=== PATIENT | female | born 1970 | race Hispanic/Latino ===

== ENCOUNTER → 2019-06-28 | Outpatient (CLI) | payer MEDICAID | END | disposition home or self-care (01) | LOC: RAH 09:54 | PROVIDERS: ATTEND Internal Medicine Gastroenterology | DX: R10.11 Right upper quadrant pain (principal); R10.13 Epigastric pain | CPT/HCPCS: 78227; A9537 ==

== ENCOUNTER 2020-09-06 12:46 | Emergency (ER) | payer MEDICAID ==
[2020-09-06 14:04] LABS: BASOPHILS % (AUTO) 0.4 % (0.0-5.0); EOSINOPHILS % (AUTO) 0.6 % (0.0-8.0); HEMATOCRIT 40.7 % (36-48); LYMPHOCYTES % (AUTO) 21.5 % (21.0-51.0); MEAN CORPUSCULAR HEMOGLOBIN 28.9 pg (27.0-33.0); MEAN CORPUSCULAR HGB CONC 32.7 g/dL (32.0-36.0); MEAN CORPUSCULAR VOLUME 88.3 fL (79-99); MONOCYTES % (AUTO) 9.5 % (3.0-13.0); NEUTROPHILS % (AUTO) 67.8 % (40.0-77.0); PLATELET COUNT (AUTO) 261 K/uL (130-400); RED BLOOD CELL COUNT(AUTO) 4.61 MIL/uL (4.00-5.50); RED CELL DISTRIBUTION WIDTH 12.3 % (11.0-15.5); WHITE BLOOD COUNT (AUTO) 9.1 K/uL (4.8-10.8)
[2020-09-06 14:15] LABS: CREATININE 0.7 mg/dL (0.5-1.5); POTASSIUM 3.7 mmol/L (3.5-5.1)
[2020-09-06 14:19] LABS: ALBUMIN 3.4 g/dL (3.5-5.0); TOTAL PROTEIN, SERUM 7.6 g/dL (6.0-8.3)
[2020-09-06] MEDS ORDERED: SODIUM CHLORIDE 0.9% 1000ML 2,000 ML IV ONE (14:40)
[2020-09-06] MEDS ORDERED: DICYCLOMINE HCL 10 MG/ML 2ML AMP IM ONE (15:07)
[2020-09-06 15:51] LABS: APPEARANCE,URINE CLOUDY (CLEAR); BILIRUBIN,URINE NEGATIVE (NEGATIVE); COLOR,URINE YELLOW (YELLOW); GLUCOSE, URINE (UA) NEGATIVE (NEGATIVE); KETONES,URINE 15 mg/dL (NEGATIVE); LEUKOCYTE ESTERASE ,URINE NEGATIVE (NEGATIVE); NITRATE,URINE NEGATIVE (NEGATIVE); OCCULT BLOOD,URINE MODERATE (NEGATIVE); PROTEIN,URINE TRACE mg/dL (NEGATIVE); UROBILINOGEN,URINE 0.2 mg/dL (0.2-1.0)
[2020-09-06 16:04] LABS: BACTERIA,URINE Few /HPF (None Seen); RBC,URINE 0-1 /HPF (0-1); SQUAMOUS EPITHELIAL CELL,UR Moderate /HPF (0-2); WBC,URINE 0-1 /HPF (0-1)
== END 2020-09-06 17:00 | disposition home or self-care (01) ==
LOC: EDH 12:46
DX: B33.8 Other specified viral diseases (principal); R19.7 Diarrhea, unspecified; Z20.822 Contact with and (suspected) exposure to COVID-19; J45.909 Unspecified asthma, uncomplicated; Z88.0 Allergy status to penicillin; Z90.710 Acquired absence of both cervix and uterus; Z98.890 Other specified postprocedural states
CPT/HCPCS: 36415; 71045; 80053; 81001; 82150; 83690; 85025; 87426; 87804 ×2; 87880; 96360; 96361; 96372; 99284; J0500; J7030; U0003

== ENCOUNTER 2020-12-03 14:35 | Emergency (ER) | payer MEDICAID ==
[2020-12-03 14:51] LABS: BASOPHILS % (AUTO) 0.7 % (0.0-5.0); EOSINOPHILS % (AUTO) 4.3 % (0.0-8.0); HEMATOCRIT 41.3 % (36-48); LYMPHOCYTES % (AUTO) 23.3 % (21.0-51.0); MEAN CORPUSCULAR HEMOGLOBIN 28.8 pg (27.0-33.0); MEAN CORPUSCULAR HGB CONC 33.2 g/dL (32.0-36.0); MEAN CORPUSCULAR VOLUME 86.9 fL (79-99); MONOCYTES % (AUTO) 10.6 % (3.0-13.0); NEUTROPHILS % (AUTO) 60.5 % (40.0-77.0); PLATELET COUNT (AUTO) 216 K/uL (130-400); RED BLOOD CELL COUNT(AUTO) 4.75 MIL/uL (4.00-5.50); RED CELL DISTRIBUTION WIDTH 12.9 % (11.0-15.5); WHITE BLOOD COUNT (AUTO) 7.2 K/uL (4.8-10.8)
[2020-12-03 15:02] LABS: CREATININE 0.8 mg/dL (0.5-1.5); POTASSIUM 3.9 mmol/L (3.5-5.1)
[2020-12-03 15:05] LABS: APPEARANCE,URINE Turbid (CLEAR); BILIRUBIN,URINE Negative (NEGATIVE); COLOR,URINE Yellow (YELLOW); GLUCOSE, URINE (UA) TRACE mg/dL (NEGATIVE); KETONES,URINE Trace mg/dL (NEGATIVE); LEUKOCYTE ESTERASE ,URINE Moderate (NEGATIVE); NITRATE,URINE Negative (NEGATIVE); OCCULT BLOOD,URINE Moderate (NEGATIVE); PH,URINE 5.5 (5.0-8.0); PROTEIN,URINE POS 2+ mg/dL (NEGATIVE)
[2020-12-03 15:06] LABS: ALBUMIN 3.5 g/dL (3.5-5.0); BILIRUBIN,TOTAL 0.8 mg/dL (0.2-1.0); TOTAL PROTEIN, SERUM 7.8 g/dL (6.0-8.3)
[2020-12-03 15:20] LABS: BACTERIA,URINE Few /HPF (None Seen); MUCUS,URINE Moderate LPF (None Seen); SQUAMOUS EPITHELIAL CELL,UR Few /HPF (0-2); YEAST,URINE BUDDING Few /HPF (None Seen)
[2020-12-03] MEDS ORDERED: ONDANSETRON HCL 4 MG/2 ML VIAL ONE (15:23)
[2020-12-03] MEDS ORDERED: FAMOTIDINE/PF 20 MG/2 ML VIAL IV ONE (15:24)
[2020-12-03] MEDS ORDERED: NITROFURANTOIN MONOHYD/M-CRYST 100 MG CAPSULE PO ONE (15:24)
[2020-12-03] MEDS ORDERED: IOHEXOL-350 75 ML VIAL IV ONE (15:31)
== END 2020-12-03 16:49 | disposition home or self-care (01) ==
LOC: EDH 14:35
DX: N39.0 Urinary tract infection, site not specified (principal); K76.0 Fatty (change of) liver, not elsewhere classified; R10.84 Generalized abdominal pain; J45.909 Unspecified asthma, uncomplicated; Z88.0 Allergy status to penicillin; Z88.8 Allergy status to other drugs, medicaments and biological substances; Z90.49 Acquired absence of other specified parts of digestive tract
CPT/HCPCS: 36415; 74177; 80053; 81001; 81025; 82150; 83690; 85025; 87088; 96374; 96375; 99285; J2405; J3490; Q9967

== ENCOUNTER 2021-07-04 19:40 | Emergency (ER) | payer MEDICAID ==
[~2021-07-04] VITALS: Ht 160 cm; Wt 93.0 kg
[2021-07-04 21:53] LABS: BASOPHILS % (AUTO) 0.7 % (0.0-5.0); HEMATOCRIT 38.4 % (36-48); LYMPHOCYTES % (AUTO) 33.2 % (21.0-51.0); MEAN CORPUSCULAR HEMOGLOBIN 28.9 pg (27.0-33.0); MEAN CORPUSCULAR HGB CONC 33.1 g/dL (32.0-36.0); MEAN CORPUSCULAR VOLUME 87.3 fL (79-99); MONOCYTES % (AUTO) 7.7 % (3.0-13.0); NEUTROPHILS % (AUTO) 54.3 % (40.0-77.0); PLATELET COUNT (AUTO) 272 K/uL (130-400); RED CELL DISTRIBUTION WIDTH 12.7 % (11.0-15.5)
[2021-07-04 22:05] LABS: CREATININE 0.7 mg/dL (0.5-1.5); POTASSIUM 3.6 mmol/L (3.5-5.1)
[2021-07-04 22:10] LABS: ALBUMIN 3.4 g/dL (3.5-5.0); BILIRUBIN,TOTAL 0.7 mg/dL (0.2-1.0); TOTAL PROTEIN, SERUM 7.3 g/dL (6.0-8.3)
[2021-07-04 22:20] LABS: BILIRUBIN,URINE Negative (NEGATIVE); COLOR,URINE Yellow (YELLOW); GLUCOSE, URINE (UA) Negative (NEGATIVE); KETONES,URINE Negative (NEGATIVE); LEUKOCYTE ESTERASE ,URINE Negative (NEGATIVE); NITRATE,URINE Negative (NEGATIVE); OCCULT BLOOD,URINE Trace (NEGATIVE); PH,URINE 5.5 (5.0-8.0); PROTEIN,URINE POS 1+ mg/dL (NEGATIVE)
[2021-07-04 22:22] LABS: APPEARANCE,URINE HAZY (CLEAR)
[2021-07-04] MEDS ORDERED: LIDOCAINE 5% TOPICAL PATCH TP ONE (22:30)
[2021-07-04] MEDS ORDERED: ORPHENADRINE CITRATE 30 MG/ML ML IM ONE (22:30)
[2021-07-04] MEDS ORDERED: KETOROLAC 60 MG VIAL (30MG/ML) IM ONE (22:30)
[2021-07-04 22:35] LABS: BACTERIA,URINE Moderate /HPF (None Seen)
[2021-07-05] MEDS ORDERED: NAPR-1180 PO (00:38)
[2021-07-05] MEDS ORDERED: DEXA4TAB PO (00:38)
[2021-07-05 00:56] VITALS: BP 134/79
== END 2021-07-05 00:58 | disposition home or self-care (01) ==
LOC: EDH 19:40
DX: M54.50 Low back pain, unspecified (principal); K76.0 Fatty (change of) liver, not elsewhere classified; E27.8 Other specified disorders of adrenal gland; J45.909 Unspecified asthma, uncomplicated; I10 Essential (primary) hypertension; Z88.0 Allergy status to penicillin
CPT/HCPCS: 36415; 74176; 80053; 81001; 82550; 83690; 85025; 87088; 96372 ×2; 99284; J1885; J2360

== ENCOUNTER 2023-05-05 20:57 | Emergency (ER) | payer MEDICAID ==
[~2023-05-05] VITALS: Ht 160 cm; Wt 96.6 kg
[~2023-05-05 20:57] MED LIST: DEXA4TAB PO; NAPR-1180 PO
[2023-05-05 21:14] VITALS: BP 137/81
[2023-05-05] MEDS ORDERED: IPRATROPIUM/ALBUTEROL SULFATE 3 ML SOLUTION IH ONE (21:30)
[2023-05-05] MEDS ORDERED: PREDNISONE 20 MG TABLET PO ONE (21:30)
[2023-05-05 21:31] VITALS: PULSE 80; RESP 16
[2023-05-05] MEDS ORDERED: IPRA4AER IH (21:35)
[2023-05-05] MEDS ORDERED: METH4TAB3 PO (21:35)
[2023-05-05] MEDS ORDERED: FEXO180T94 PO (21:35)
[2023-05-05] MEDS ORDERED: HONE5.5S PO (22:51)
[2023-05-05] MEDS ORDERED: BENZ-39 PO (22:51)
[2023-05-05] MEDS ORDERED: GUAI600T50 PO (22:51)
== END 2023-05-05 23:03 | disposition home or self-care (01) ==
LOC: EDH 20:57
DX: J45.901 Unspecified asthma with (acute) exacerbation (principal); Z90.49 Acquired absence of other specified parts of digestive tract; Z90.710 Acquired absence of both cervix and uterus; Z79.899 Other long term (current) drug therapy; Z88.0 Allergy status to penicillin; Z88.8 Allergy status to other drugs, medicaments and biological substances
CPT/HCPCS: 94640

== ENCOUNTER 2023-07-04 23:20 | Emergency (ER) | payer MEDICAID, OTHER ==
[~2023-07-04] VITALS: Ht 160 cm; Wt 95.7 kg
[~2023-07-04 23:20] MED LIST changes: +BENZ-39 PO; +FEXO180T94 PO; +GUAI600T50 PO; +HONE5.5S PO; +IPRA4AER IH; +METH4TAB3 PO
[2023-07-04 23:22] VITALS: BP_DIAS 80
[2023-07-04] MEDS ORDERED: CLIN-141 PO (23:58)
[2023-07-04] MEDS ORDERED: IBUP-2077 PO (23:58)
[2023-07-05] MEDS ORDERED: CLINDAMYCIN 150 MG CAP PO ONE
[2023-07-05] MEDS ORDERED: IBUPROFEN 800 MG TAB PO ONE
[2023-07-05 00:50] VITALS: BP_SYST 82; PULSE 78; RESP 18; O2SAT 98
== END 2023-07-05 00:57 | disposition home or self-care (01) ==
LOC: EDH 23:20
DX: S02.5XXA Fracture of tooth (traumatic), initial encounter for closed fracture (principal); E11.9 Type 2 diabetes mellitus without complications; J45.909 Unspecified asthma, uncomplicated; Z79.899 Other long term (current) drug therapy; Z90.49 Acquired absence of other specified parts of digestive tract; Z90.710 Acquired absence of both cervix and uterus; Z98.890 Other specified postprocedural states; Z88.0 Allergy status to penicillin; Z88.8 Allergy status to other drugs, medicaments and biological substances; X58.XXXA Exposure to other specified factors, initial encounter; Y93.89 Activity, other specified; Y92.89 Other specified places as the place of occurrence of the external cause; Y99.8 Other external cause status

== ENCOUNTER 2023-11-07 00:20 | Emergency (ER) | payer BC, OTHER ==
[~2023-11-07] VITALS: Ht 154.9 cm; Wt 94.8 kg
[~2023-11-07 00:20] MED LIST changes: +CLIN-141 PO; +IBUP-2077 PO
[2023-11-07] MEDS: ONDANSETRON 4MG INJ IVP ONE (02:45)
[2023-11-07] MEDS: MORPHINE 4 MG SYG IVP ONE (02:46)
[2023-11-07] MEDS: DiphenhydrAMINE HCL 50 MG/ML VIAL IV ONE (02:54)
[2023-11-07] MEDS: DiphenhydrAMINE HCL 50 MG/ML VIAL ONE (02:56)
[2023-11-07 02:57] LABS: BASOPHILS # (AUTO) 0.07 K/uL (0.00-0.20); BASOPHILS % (AUTO) 0.5 % (0.0-5.0); EOSINOPHILS # (AUTO) 0.16 K/uL (0.00-0.70); EOSINOPHILS % (AUTO) 1.2 % (0.0-8.0); HEMATOCRIT 39.8 % (36-48); IMMATURE GRANULOCYTE ABSOLUTE 0.04 K/uL (0-1); LYMPHOCYTES # (AUTO) 3.7 K/uL (1.0-4.8); LYMPHOCYTES % (AUTO) 28.5 % (21.0-51.0); MEAN CORPUSCULAR HGB CONC 33.4 g/dL (32.0-36.0); MEAN CORPUSCULAR VOLUME 86.9 fL (79-99); MONOCYTES # (AUTO) 0.8 K/uL (0.1-1.0); NEUTROPHILS # (AUTO) 8.3 K/uL (1.8-7.7); NEUTROPHILS % (AUTO) 63.5 % (40.0-77.0); PLATELET COUNT (AUTO) 313 K/uL (130-400); RED BLOOD CELL COUNT(AUTO) 4.58 MIL/uL (4.00-5.50); RED CELL DISTRIBUTION WIDTH 12.9 % (11.0-15.5); WHITE BLOOD COUNT (AUTO) 13.1 K/uL (4.8-10.8)
[2023-11-07 03:05] LABS: CREATININE 0.6 mg/dL (0.5-1.0); POTASSIUM 3.9 mmol/L (3.5-5.1)
[2023-11-07 03:10] LABS: ALBUMIN 3.4 g/dL (3.5-5.0); BILIRUBIN,TOTAL 0.9 mg/dL (0.2-1.0)
[2023-11-07] MEDS: CEFTRIAXONE 1G VIAL IVPB ONE (03:55)
[2023-11-07 04:24] LABS: ERYTHROCYTE SEDIMENTATION RATE 44 MM/HR (0-30)
[2023-11-07] MEDS: KETOROLAC 30MG VIAL (30MG/ML) IVP ONE (04:46)
[2023-11-07] MEDS ORDERED: CEPH500B PO (05:27)
[2023-11-07] MEDS ORDERED: IBUP-2070 PO (05:27)
[2023-11-07 05:34] VITALS: BP 141/67; PULSE 78; RESP 18; O2SAT 99
== END 2023-11-07 05:40 | disposition home or self-care (01) ==
LOC: EDH 00:20
DX: M25.531 Pain in right wrist (principal); M79.89 Other specified soft tissue disorders; J45.909 Unspecified asthma, uncomplicated; M19.90 Unspecified osteoarthritis, unspecified site; Z79.52 Long term (current) use of systemic steroids; Z88.0 Allergy status to penicillin; Z90.49 Acquired absence of other specified parts of digestive tract; Z90.710 Acquired absence of both cervix and uterus
CPT/HCPCS: 99284; 96365; 96375; 80053; 85025; 85651; 86140; 36415; 73130; 73110; J1200; J0696; J2405; J2270; J1885

== ENCOUNTER 2023-11-09 07:23 | Emergency (ER) | payer BC ==
[~2023-11-09] VITALS: Ht 154.9 cm; Wt 96.6 kg
[~2023-11-09 07:23] MED LIST changes: +CEPH500B PO; +IBUP-2070 PO
[2023-11-09] MEDS: SOLU-MEDROL 125MG VIAL IM ONE (09:28)
[2023-11-09] MEDS: KETOROLAC 60 MG VIAL (30MG/ML) IM ONE (09:29)
[2023-11-09] MEDS ORDERED: METH4TAB3 PO (11:45)
[2023-11-09] MEDS ORDERED: MELO-106 PO (11:45)
[2023-11-09] MEDS ORDERED: PREG25 PO (11:45)
[2023-11-09 11:53] VITALS: BP 141/72; PULSE 76; RESP 16; O2SAT 100
== END 2023-11-09 11:58 | disposition home or self-care (01) ==
LOC: EDH 07:23
DX: G56.03 Carpal tunnel syndrome, bilateral upper limbs (principal); M19.90 Unspecified osteoarthritis, unspecified site; J45.909 Unspecified asthma, uncomplicated; Z79.52 Long term (current) use of systemic steroids; Z88.0 Allergy status to penicillin; Z88.5 Allergy status to narcotic agent; Z90.49 Acquired absence of other specified parts of digestive tract; Z90.710 Acquired absence of both cervix and uterus
CPT/HCPCS: 99284; 72050; 96372 ×2; J2930; J1885